=== PATIENT | male | born 1995 | race Caucasian/White ===

== ENCOUNTER 2022-02-10 15:15 | Emergency (ER) | payer SELFPAY ==
[~2022-02-10] VITALS: Ht 182 cm; Wt 104.0 kg
--- NOTE | 2022-02-10 16:05 | Diagnostic Imaging Report ---
INDICATION: Back pain and difficulty breathing. EXAMINATION: Two view chest on 02/10/2022. FINDINGS: Two views of the chest demonstrate slightly coarsened interstitial markings in the mid and lower lungs with a focal area of atelectasis versus infiltrate at the left lung base. There is no effusion. There is no pneumothorax. The heart and pulmonary vasculature are normal. IMPRESSION: Possible atelectasis versus infiltrate at the left lung base, correlate with symptoms. Dictated by: Dictated on workstation # [id number]
[2022-02-10] MEDS ORDERED: ACETAMINOPHEN 500 MG TAB (TYLENOL) PO ONE (16:15)
--- NOTE | 2022-02-10 17:48 | ED General ---
General Chief Complaint: Back Problems Stated Complaint: BACK PAIN Nursing Triage Note: ARRIVED VIA EMS WITH COMPLAINTS OF BACK PAIN WHEN HE BREATHES. STATES HE TOOK IBUPROFEN LAST NIGHT BUT IT DID NOT HELP. Source of Information: Patient, Family Exam Limitations: No Limitations History of Present Illness Date Seen by Provider: Feb 10, 2022 Time Seen by Provider: 15:48 Initial Comments This 27-year-old young man presents to the emergency room accompanied by his mother with complaints of left lower chest pain with significant worsening with inspiration. He denies fever or cough. There is been no injury. Symptoms have been present for 2 days. He took ibuprofen 800 mg this morning without relief. Allergies and Home Medications Allergies Coded Allergies: No Known Drug Allergies (Unverified , 02/10/22) Patient Home Medication List Home Medication List Reviewed: Yes Azithromycin (Azithromycin) 250 Mg Tablet, 250 MG PO UD Prescribed by: KRISHNA MALDONADO on 02/10/221756 Hydrocodone/Acetaminophen (Hydrocodone-Acetamin 5-325 mg) 5 Mg-325 Mg Tablet, 1 TAB PO Q4H PRN for PAIN-BREAKTHROUGH Prescribed by: KRISHNA MALDONADO on 02/10/22 175 Review of Systems Review of Systems Constitutional: no symptoms reported EENTM: no symptoms reported Respiratory: see HPI Cardiovascular: no symptoms reported Gastrointestinal: no symptoms reported Genitourinary: no symptoms reported Musculoskeletal: no symptoms reported Skin: no symptoms reported Psychiatric/Neurological: No Symptoms Reported Hematologic/Lymphatic: No Symptoms Reported Past Zbbxlsi-Euajol-Ejgiqg Hx Patient Social History Tobacco Use?: No Substance use?: No Alcohol Use?: No Past Medical History Surgeries: No Respiratory: No Cardiac: No Neurological: No Genitourinary: No Gastrointestinal: No Musculoskeletal: No Endocrine: No HEENT: No Cancer: No Psychosocial: No Physical Exam Vital Signs Vital Signs - First Documented 02/10/22 15:15 Temp 36.9 Pulse 94 Resp 16 B/P (MAP) 150/89 (109) Pulse Ox 94 O2 Delivery Room Air Capillary Refill : Less Than 3 Seconds Height, Weight, BMI Height: '" Weight: lbs. oz. 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 Skin: Normal Color, Warm/Dry Progress/Results/Core Measures Suspected Sepsis SIRS Temperature: Pulse: 94 Respiratory Rate: 16 Blood Pressure 150 /89 Mean: 109 Results/Orders My Orders Orders - KRISHNA RODRIGUEZ MD Chest Pa/Lat (2 View) (02/10/22 15:48) Hydrocodone/Apap 5/325 Tablet (Lortab 5 (02/10/22 18:00) Medications Given in ED Current Medications Medications Dose Ordered Sig/Donta Route Start Time Stop Time Status Last Admin Dose Admin Acetaminophen/ Hydrocodone Bitart 1 ea ONCE ONCE PO 02/10/22 18:00 02/10/22 18:01 DC 02/10/22 17:55 1 EA Vital Signs/I&O 02/10/22 02/10/22 15:15 18:08 Temp 36.9 Pulse 94 93 Resp 16 16 B/P (MAP) 150/89 (109) 132/76 Pulse Ox 94 96 O2 Delivery Room Air Room Air Capillary Refill : Less Than 3 Seconds Blood Pressure Mean: 109 Progress Note : Progress Note Chest x-ray suspicious for pneumonia. Hydrocodone given for pain and azithromycin prescribed. Diagnostic Imaging Diagonstic Imaging: Xray Plain Films/CT/US/NM/MRI: chest Comments NAME: [facility] REC#: [id number] PT STATUS: REG ER : 1995 PHYSICIAN: KRISHNA RODRIGUEZ MD ADMIT DATE: 02/10/22/ER Signed Date of Exam:02/10/22 CHEST PA/LAT (2 VIEW) INDICATION: Back pain and difficulty breathing. EXAMINATION: Two view chest on 02/10/2022. FINDINGS: Two views of the chest demonstrate slightly coarsened interstitial markings in the mid and lower lungs with a focal area of atelectasis versus infiltrate at the left lung base. There is no effusion. There is no pneumothorax. The heart and pulmonary vasculature are normal. IMPRESSION: Possible atelectasis versus infiltrate at the left lung base, correlate with symptoms. Dictated by: Dictated on workstation # [id number] Dict: 02/10/22 1600 Trans: 02/10/22 1643 [id number] Interpreted by: BRYSON NAJERA MD Electronically signed by: BRYSON NAJERA MD 02/10/22 1643 Departure Impression Primary Impression: Left lower lobe pneumonia Qualified Codes: J18.9 - Pneumonia, unspecified organism Additional Impression: Pleuritic chest pain Disposition: HOME, SELF-CARE Condition: Stable Departure-Patient Inst. Decision time for Depature: 17:51 Patient Instructions: Pneumonia, Adult ED Add. Discharge Instructions: Complete your antibiotics as prescribed. You may take ibuprofen up to 600 mg every 6 hours as needed for pain. For the first few days of treatment, more frequent ibuprofen use will help calm down inflammation and overall will reduce your pain. Add hydrocodone as prescribed for pain not controlled by ibuprofen. Good pain control is important to help facilitate deep breathing which should help you recover from pneumonia. If you do not have significant improvement over the next several days, return to care for further evaluation. If you have worsening of symptoms despite following these instructions, return to care. All discharge instructions reviewed with patient and/or family. Voiced understanding. Scripts Azithromycin (Azithromycin) 250 Mg Tablet 250 MG PO UD, #6 TAB TAKE 2 TABLETS ON DAY ONE THEN TAKE 1 TABLET DAILY FOR FOUR MORE DAYS Prov: KRISHNA RODRIGUEZ MD 02/10/22 Hydrocodone/Acetaminophen (Hydrocodone-Acetamin 5-325 mg) 5 Mg-325 Mg Tablet 1 TAB PO Q4H PRN for PAIN-BREAKTHROUGH, #10 TAB Prov: KRISHNA RODRIGUEZ MD 02/10/22 KRISHNA RODRIGUEZ MD Feb 10, 2022 17:48
[2022-02-10] MEDS ORDERED: ACHD5005 PO (17:55)
[2022-02-10] MEDS ORDERED: AZIT250T12 PO (17:57)
[2022-02-10] MEDS ORDERED: HYDROcodone/APAP 5 MG/325 MG (LORTAB) TAB PO ONE (18:00)
[2022-02-10 18:08] VITALS: BP 132/76
== END 2022-02-10 18:08 | disposition home or self-care (01) ==
LOC: ER 15:17
DX: J18.1 Lobar pneumonia, unspecified organism (principal); Z28.310 Unvaccinated for COVID-19
CPT/HCPCS: 71046